=== PATIENT | female | born 1980 | race Two or more races ===

== ENCOUNTER → 2023-10-22 10:14 | Outpatient (REF) | payer BC, SELFPAY | LOC: HWWDC 10:14 | PROVIDERS: ATTENDING PHYSICIAN Nurse Practitioner | DX: Z12.31 Encounter for screening mammogram for malignant neoplasm of breast (principal) | CPT/HCPCS: 77063; 77067 ==

== ENCOUNTER → 2024-02-13 09:07 | Outpatient (REF) | payer BC, SELFPAY | LOC: WDC 09:07 | PROVIDERS: ATTENDING PHYSICIAN Nurse Practitioner | DX: R92.333 Mammographic heterogeneous density, bilateral breasts (principal) | CPT/HCPCS: 76641 ==

== ENCOUNTER → 2024-09-09 08:09 | Outpatient (REF) | payer BC, SELFPAY | LOC: WDC 08:09 | DX: R92.8 Other abnormal and inconclusive findings on diagnostic imaging of breast (principal) | CPT/HCPCS: 76642 ==

== ENCOUNTER → 2025-03-18 13:55 | Outpatient (REF) | payer BC, SELFPAY | LOC: WDC 13:55 | DX: R92.8 Other abnormal and inconclusive findings on diagnostic imaging of breast (principal); Z12.31 Encounter for screening mammogram for malignant neoplasm of breast | CPT/HCPCS: 76642; 77063; 77067 ==